=== PATIENT | female | born 1940 | race Caucasian/White ===

== ENCOUNTER 2018-06-04 09:49 | Emergency (ER) | payer MEDICARE ==
[~2018-06-04] VITALS: Ht 160 cm; Wt 75.0 kg
[~2018-06-04 09:49] MED LIST: ACYC-202 PO; ALEN40TA2 PO; AMLO5TAB16 PO; ASPI-1265 PO; ESCI10TA45 PO; HYDR-4353 PO; LACT1CAP65 PO; LEVO50TA67 PO; MECL12.584 PO; SENN-121 PO; TRAM50TA2 PO; VERA180T PO
[2018-06-04 10:52] LABS: BASOPHILS % (AUTO) 0.6 % (0-1); EOSINOPHILS # (AUTO) 0.1 X10'3 (0-0.9); EOSINOPHILS % (AUTO) 2.7 % (0-6); HEMATOCRIT 37.6 % (35.0-45.0); HEMOGLOBIN 12.2 g/dl (12.0-16.0); LYMPHOCYTES # (AUTO) 1.7 X10'3 (1.1-4.8); LYMPHOCYTES % (AUTO) 39.4 % (21-51); MEAN CORPUSCULAR HEMOGLOBIN 29.3 PG (27.0-31.0); MEAN CORPUSCULAR HGB CONC 32.5 % (33.0-36.5); MEAN CORPUSCULAR VOLUME 90.4 FL (78-98); MEAN PLATELET VOLUME 8.6 FL (7.4-10.4); MONOCYTES # (AUTO) 0.5 X10'3 (0-0.9); NEUTROPHILS % (AUTO) 46.3 % (42-75); PLATELET COUNT 240 X10'3 (140-440); RED BLOOD COUNT 4.16 X10'6 (4.20-5.60); RED CELL DISTRIBUTION WIDTH 14.8 % (11.5-14.5); WHITE BLOOD COUNT 4.4 X10'3 (4.5-11.0)
[2018-06-04 10:59] LABS: PARTIAL THROMBOPLASTIN TIME 26 SECONDS (22-32); PROTHROMBIN TIME 10.1 SECONDS (9.0-12.0)
[2018-06-04 11:01] LABS: ALANINE AMINOTRANSFERASE 26 U/L (12-78); ALBUMIN 3.4 G/DL (3.4-5.0); ALKALINE PHOSPHATASE 63 IU/L (46-116); ANION GAP 6 (8-16); ASPARTATE AMINO TRANSFERASE 20 U/L (10-37); BILIRUBIN,TOTAL 0.3 MG/DL (0.1-1.0); BLOOD UREA NITROGEN 14 MG/DL (7-18); BUN/CREATININE RATIO 15.7 (6.6-38.0); CALCIUM 9.3 MG/DL (8.5-10.1); CHLORIDE 106 MMOL/L (99-107); CREATININE 0.89 MG/DL (0.40-0.90); GLUCOSE 94 MG/DL (70-104); POTASSIUM 4.3 MMOL/L (3.5-5.1); SODIUM 144 MMOL/L (135-145); TOTAL CARBON DIOXIDE 32.4 MMOL/L (24-32); TOTAL PROTEIN 6.7 G/DL (6.4-8.2); eGFR 61 ML/MIN
[2018-06-04 12:56] LABS: CLARITY,URINE CLEAR (Clear); COLOR,URINE YELLOW (Yellow); GLUCOSE, URINE NEGATIVE (Neg); KETONES,URINE NEGATIVE (Neg); LEUKOCYTE ESTERASE ,URINE NEGATIVE (Neg); NITRITES, URINE NEGATIVE (Neg); OCCULT BLOOD,URINE NEGATIVE (Neg); PROTEIN,URINE NEGATIVE (Neg); UROBILINOGEN,URINE 0.2 E.U/dL (0.2-1.0)
[2018-06-04 13:01] LABS: UA COLLECTION TYPE CLN CATCH MIDSTREAM
[2018-06-04 13:06] VITALS: BP 157/68
== END 2018-06-04 13:08 | disposition home or self-care (01) ==
LOC: ER 09:50
DX: T82.120A Displacement of cardiac electrode, initial encounter (principal); Z95.0 Presence of cardiac pacemaker; Z88.0 Allergy status to penicillin; Z88.5 Allergy status to narcotic agent; Z79.82 Long term (current) use of aspirin; Z79.899 Other long term (current) drug therapy; Y92.89 Other specified places as the place of occurrence of the external cause
CPT/HCPCS: 36415; 71045; 80053; 81003; 84484; 85025; 85610; 85730; 93005; 99284

== ENCOUNTER 2018-10-30 10:09 | Observation (INO) | payer MEDICARE ==
[~2018-10-30] VITALS: Ht 162.6 cm; Wt 81.0 kg
[2018-10-30 10:54] LABS: BASOPHILS % (AUTO) 0.6 % (0-1); EOSINOPHILS # (AUTO) 0.2 X10'3 (0-0.9); EOSINOPHILS % (AUTO) 3.5 % (0-6); HEMATOCRIT 36.7 % (35.0-45.0); HEMOGLOBIN 11.9 g/dl (12.0-16.0); LYMPHOCYTES # (AUTO) 2.1 X10'3 (1.1-4.8); LYMPHOCYTES % (AUTO) 33.6 % (21-51); MEAN CORPUSCULAR HEMOGLOBIN 28.8 PG (27.0-31.0); MEAN CORPUSCULAR HGB CONC 32.6 g/dL (33.0-36.5); MEAN CORPUSCULAR VOLUME 88.6 FL (78-98); MEAN PLATELET VOLUME 9.5 FL (7.4-10.4); MONOCYTES # (AUTO) 0.6 X10'3 (0-0.9); MONOCYTES % (AUTO) 10.1 % (2-12); NEUTROPHILS # (AUTO) 3.3 X10'3 (1.8-7.7); NEUTROPHILS % (AUTO) 52.2 % (42-75); PLATELET COUNT 251 X10'3 (140-440); RED BLOOD COUNT 4.14 X10'6 (4.20-5.60); RED CELL DISTRIBUTION WIDTH 14.6 % (11.5-14.5); WHITE BLOOD COUNT 6.3 X10'3 (4.5-11.0)
[2018-10-30 11:06] LABS: ALANINE AMINOTRANSFERASE 23 U/L (12-78); ALBUMIN 3.3 G/DL (3.4-5.0); ALKALINE PHOSPHATASE 65 IU/L (46-116); ANION GAP 6 (8-16); ASPARTATE AMINO TRANSFERASE 16 U/L (10-37); BILIRUBIN,TOTAL 0.4 MG/DL (0.1-1.0); BLOOD UREA NITROGEN 18 MG/DL (7-18); BUN/CREATININE RATIO 21.2 (6.6-38.0); CALCIUM 9.4 MG/DL (8.5-10.1); CHLORIDE 107 MMOL/L (99-107); CREATININE 0.85 MG/DL (0.40-0.90); GLUCOSE 100 MG/DL (70-104); POTASSIUM 4.6 MMOL/L (3.5-5.1); SODIUM 140 MMOL/L (135-145); TOTAL CARBON DIOXIDE 27.5 MMOL/L (24-32); TOTAL PROTEIN 6.6 G/DL (6.4-8.2); eGFR 64 ML/MIN
[2018-10-30 11:09] LABS: PARTIAL THROMBOPLASTIN TIME 25 SECONDS (22-32)
[2018-10-30] MEDS ORDERED: nitroGLYCERIN 0.4mg/hour patch TD ONE (11:30)
[2018-10-30] MEDS ORDERED: aspirin 81mg tab.chew PO ONE (11:30)
[2018-10-30] MEDS ORDERED: potassium Cl 20 mEq SR tablet PO PRN ×2 (12:35)
[2018-10-30] MEDS ORDERED: magnesium hydroxide 30ml (MOM) UD suspension PO PRN (12:35)
[2018-10-30] MEDS ORDERED: potassium Cl 40MEQ/NS 500ml 500 ML IV PRN ×2 (12:35)
[2018-10-30] MEDS ORDERED: magnesium Cl slow-release 64mg tablet PO PRN (12:35)
[2018-10-30] MEDS ORDERED: acetaminophen 325mg tablet PO PRN (12:35)
[2018-10-30] MEDS ORDERED: bisacodyl 10mg suppository rectal RC PRN (12:35)
[2018-10-30] MEDS ORDERED: morphine 2 MG/ML inj. syringe IV PRN ×2 (12:35)
[2018-10-30] MEDS ORDERED: magnesium 4gm in 100ml NS 100 ML IV PRN (12:35)
[2018-10-30] MEDS ORDERED: mag hydrox/Alum hydrox/simeth 30ml oral suspension PO PRN (12:35)
[2018-10-30] MEDS ORDERED: magnesium 2GM in 50ml NS 50 ML IV PRN (12:35)
[2018-10-30] MEDS ORDERED: ondansetron/PF 4mg/2ml inj IV PRN (12:35)
[2018-10-30] MEDS ORDERED: nitroGLYCERIN 0.4mg SUBLingual tab SL PRN ×2 (12:45→12:50)
[2018-10-30] MEDS ORDERED: metoprolol tartrate 1mg/ml inj IV PRN (12:50)
[2018-10-30] MEDS ORDERED: aminophylline 250mg/10ml inj. IV PRN (12:50)
[2018-10-30] MEDS ORDERED: regadenoson 0.4mg/5ml syringe IV PRN (12:50)
[2018-10-30] MEDS: pantoprazole 40 MG vial IV SCH (12:54)
[2018-10-30] MEDS: sodium chloride 0.45% 1,000 ML IV SCH (12:54)
[2018-10-30] MEDS ORDERED: IRBE150T27 PO (13:40)
[2018-10-30] MEDS ORDERED: OMEP20CA10 PO (13:40)
[2018-10-30] MEDS ORDERED: ESTR10TA VG (13:40)
[2018-10-30] MEDS ORDERED: TRIA1TAB5 PO (13:40)
[2018-10-30] MEDS ORDERED: HYDR-4383 PO (13:40)
[2018-10-30] MEDS ORDERED: DULO20CA17 PO (13:45)
[2018-10-30] MEDS ORDERED: DONE10TA7 PO (13:46)
[2018-10-30] MEDS ORDERED: ASCO500C15 PO (13:48)
[2018-10-30] MEDS ORDERED: VITA-268 PO (13:48)
[2018-10-30] MEDS ORDERED: MULT-933 PO (13:48)
[2018-10-30] MEDS ORDERED: CALC1TAB PO (13:48)
[2018-10-30] MEDS ORDERED: NAPR220T67 PO (13:50)
[2018-10-30] MEDS ORDERED: CHOL100046 PO (13:50)
[2018-10-30 15:34] LABS: CLARITY,URINE CLEAR (Clear); COLOR,URINE YELLOW (Yellow); GLUCOSE, URINE NEGATIVE (Neg); KETONES,URINE TRACE mg/dl (Neg); LEUKOCYTE ESTERASE ,URINE NEGATIVE (Neg); NITRITES, URINE NEGATIVE (Neg); OCCULT BLOOD,URINE TRACE-LYSED (Neg); PROTEIN,URINE NEGATIVE (Neg); UROBILINOGEN,URINE 0.2 E.U/dL (0.2-1.0)
[2018-10-30 15:35] LABS: UA COLLECTION TYPE STRAIGHT CATH
[2018-10-30 15:42] LABS: SQUAMOUS EPITHELIAL CELL,UR NONE SEEN /LPF (FEW)
[2018-10-30 16:01] LABS: RBC,URINE 0-2 /HPF (0-2)
[2018-10-30 16:02] LABS: RENAL CELLS, URINE FEW /HPF; TRANSITIONAL EPI CELLS,URINE FEW /HPF
[2018-10-30 16:03] LABS: BACTERIA,URINE NONE SEEN /HPF (Neg); WBC,URINE 0-4 /HPF (0-4)
--- NOTE | 2018-10-30 17:32 | NUR ---
PATIENT ARRIVED TO ACCE UNIT ALERT/ORIENTEDX4, CALM AND COOPERATIVE WITH AT BEDSIDE. PATIENT SAYS SHE HOPES TO BE ABLE TO GO HOME TOMORROW, AND DENIES CHEST PAIN AT THIS TIME.
[2018-10-30 17:38] VITALS: BP 128/83
--- NOTE | 2018-10-30 17:43 | NUR ---
PATIENT REPORTS SHE CANNOT TAKE MORPHINE PAGED DR. MACHADO WITH INFO "Re: Hoa Powers in 313. FYI patient cannot take morphine, last hospitalization she became agitated and restrained and incontinent from morphine. do you want a different pain med ordered for her? and to dc morphine? thank you, Ermelinda BAILEY [phone]"
[2018-10-30 18:00] VITALS: BP 124/64
--- NOTE | 2018-10-30 18:00 | NUR ---
Patient in room MED 313. I have received report from Ermelinda ZAMUDIO and had the opportunity to ask questions and assume patient care.
[2018-10-30] MEDS: heparin, porcine 5000 units/ml vial SQ SCH (19:39)
[2018-10-30] MEDS: docusate sod 100mg capsule PO SCH (19:40)
[2018-10-30] MEDS: metoprolol tartrate 12.5mg (1/2 tablet) PO SCH (19:40)
[2018-10-30 22:00] VITALS: BP 137/90
[2018-10-31] VITALS (11 sets, daily range): BP systolic 104–143; BP diastolic 59–87
[2018-10-31] MEDS: sodium chloride 0.45% 1,000 ML IV SCH (03:43)
--- NOTE | 2018-10-31 04:30 | NUR ---
RECEIVED PATIENT FROM NAN ZAMUDIO AND ASSUMED CARE
--- NOTE | 2018-10-31 04:33 | NUR ---
Pt transferred in stable condition to room 4010. Portable tele box in place during transport. She was taken in her bed. O2 in place. Report was given to Cari ZAMUDIO in Neuro. Pt tolerated move well.
--- NOTE | 2018-10-31 06:05 | NUR ---
Patient in room ORTHO 4010. I have received report from ZUNILDA ZAMUDIO and had the opportunity to ask questions and assume patient care.
--- NOTE | 2018-10-31 06:14 | NUR ---
REPORT GIVEN TO FRANKLIN ZAMUDIO
[2018-10-31 06:27] LABS: BASOPHILS % (AUTO) 0.4 % (0-1); EOSINOPHILS # (AUTO) 0.1 X10'3 (0-0.9); EOSINOPHILS % (AUTO) 1.1 % (0-6); HEMATOCRIT 35.1 % (35.0-45.0); HEMOGLOBIN 11.8 g/dl (12.0-16.0); LYMPHOCYTES # (AUTO) 2.2 X10'3 (1.1-4.8); LYMPHOCYTES % (AUTO) 29.5 % (21-51); MEAN CORPUSCULAR HEMOGLOBIN 29.7 PG (27.0-31.0); MEAN CORPUSCULAR HGB CONC 33.7 g/dL (33.0-36.5); MEAN CORPUSCULAR VOLUME 88.2 FL (78-98); MEAN PLATELET VOLUME 10.1 FL (7.4-10.4); MONOCYTES # (AUTO) 0.6 X10'3 (0-0.9); MONOCYTES % (AUTO) 8.8 % (2-12); NEUTROPHILS # (AUTO) 4.4 X10'3 (1.8-7.7); NEUTROPHILS % (AUTO) 60.2 % (42-75); PLATELET COUNT 266 X10'3 (140-440); RED BLOOD COUNT 3.98 X10'6 (4.20-5.60); RED CELL DISTRIBUTION WIDTH 14.7 % (11.5-14.5); WHITE BLOOD COUNT 7.3 X10'3 (4.5-11.0)
[2018-10-31 06:48] LABS: ALANINE AMINOTRANSFERASE 21 U/L (12-78); ALBUMIN 3.2 G/DL (3.4-5.0); ALKALINE PHOSPHATASE 65 IU/L (46-116); ANION GAP 10 (8-16); ASPARTATE AMINO TRANSFERASE 13 U/L (10-37); BILIRUBIN,TOTAL 0.4 MG/DL (0.1-1.0); BLOOD UREA NITROGEN 15 MG/DL (7-18); BUN/CREATININE RATIO 18.8 (6.6-38.0); CALCIUM 9.1 MG/DL (8.5-10.1); CHLORIDE 106 MMOL/L (99-107); CHOLESTEROL 144 MG/DL (0-200); GLUCOSE 114 MG/DL (70-104); HDL CHOLESTEROL 36 MG/DL (35-60); LDL CHOLESTEROL 94 MG/DL (50-100); MAGNESIUM 1.5 MG/DL (1.5-2.4); POTASSIUM 3.7 MMOL/L (3.5-5.1); SODIUM 139 MMOL/L (135-145); TOTAL CARBON DIOXIDE 23.5 MMOL/L (24-32); TOTAL PROTEIN 6.4 G/DL (6.4-8.2); TRIGLYCERIDES 91 MG/DL (20-135); eGFR 69 ML/MIN
--- NOTE | 2018-10-31 07:11 | NUR ---
PAGER ID: [phone] MESSAGE: FRANKLIN [phone] RE: MICHAEL [id number] PT SOB, WHEEZES, NO CP, GHASSAN TODAY, DO YOU WANT ANYTHING ELSE?
[2018-10-31] MEDS ORDERED: albuterol 2.5 MG/3 ML nebule NEB PRN (07:15)
[2018-10-31] MEDS ORDERED: aspirin 81mg tablet.DR PO SCH (08:00)
[2018-10-31] MEDS ORDERED: K and/or MAG REPLACEMENT MC SCH (08:00)
[2018-10-31] MEDS: docusate sod 100mg capsule PO SCH (08:36)
[2018-10-31] MEDS: metoprolol tartrate 12.5mg (1/2 tablet) PO SCH (08:36)
[2018-10-31] MEDS: heparin, porcine 5000 units/ml vial SQ SCH (08:37)
[2018-10-31] MEDS: pantoprazole 40 MG vial IV SCH (08:48)
[2018-10-31] MEDS ORDERED: aminophylline inj. 10 ML IV ONE (10:20)
[2018-10-31] MEDS ORDERED: regadenoson 0.4mg/5ml syringe IV ONE (10:20)
[2018-10-31] MEDS ORDERED: ondansetron/PF 4mg/2ml inj ONE (10:51)
--- NOTE | 2018-10-31 11:48 | NUR ---
Student documentation: I have reviewed all interventions, assessments performed and documented by Cari Bermudez. Student Medication Administration: For this medication-pass time frame, all medication were reviewed, dispensed, administered and documented per hospital policy [facility].
--- NOTE | 2018-10-31 11:52 | NUR ---
PAGER ID: [phone] MESSAGE: FRANKLIN [phone] RE: MICHAEL [id number] BACK FROM [facility].
[2018-10-31] MEDS ORDERED: METO25TA6 PO (13:18)
== END 2018-10-31 15:45 | disposition home or self-care (01) ==
LOC: ER 10:09 → MED 3N 11:40 → CMPBEDREQ 19:31 → ORTHO 4S 10-31 04:18
PROVIDERS: ADMIT Internal Medicine; ATTEND Internal Medicine
DX: R07.89 Other chest pain (principal); J96.10 Chronic respiratory failure, unspecified whether with hypoxia or hypercapnia; M79.7 Fibromyalgia; I10 Essential (primary) hypertension; E03.9 Hypothyroidism, unspecified; F03.90 Unspecified dementia, unspecified severity, without behavioral disturbance, psychotic disturbance, mood disturbance, and anxiety; R53.83 Other fatigue; E78.00 Pure hypercholesterolemia, unspecified; I49.9 Cardiac arrhythmia, unspecified; Z95.0 Presence of cardiac pacemaker; K21.9 Gastro-esophageal reflux disease without esophagitis; R29.6 Repeated falls
CPT/HCPCS: 36415; 71045; 78452; 80053; 80061; 81001; 83735; 84443; 84484; 85025; 85610; 85730; 87070; 93005; 93017; 93306; 94760; 96372; 96374; 96375; 96376; 99284; A9500; C9113; G0378; J0280; J1644; J2405

== ENCOUNTER 2018-11-08 09:33 | Emergency (ER) | payer MEDICARE ==
[~2018-11-08] VITALS: Ht 167.6 cm; Wt 81.8 kg
[~2018-11-08 09:33] MED LIST changes: -ACYC-202 PO; -ALEN40TA2 PO; -AMLO5TAB16 PO; +ASCO500C15 PO; +CALC1TAB PO; +CHOL100046 PO; +DONE10TA7 PO; +DULO20CA17 PO; -ESCI10TA45 PO; +ESTR10TA VG; -HYDR-4353 PO; +HYDR-4383 PO; +IRBE150T27 PO; -LACT1CAP65 PO; -MECL12.584 PO; +METO25TA6 PO; +MULT-933 PO; +NAPR220T67 PO; +OMEP20CA10 PO; -SENN-121 PO; -TRAM50TA2 PO; -VERA180T PO; +VITA-268 PO
--- NOTE | 2018-11-08 10:08 | NUR ---
label press operator at bedside.
[2018-11-08 10:55] LABS: CLARITY,URINE CLOUDY (Clear); COLOR,URINE YELLOW (Yellow); GLUCOSE, URINE NEGATIVE (Neg); KETONES,URINE NEGATIVE (Neg); LEUKOCYTE ESTERASE ,URINE TRACE (Neg); NITRITES, URINE NEGATIVE (Neg); OCCULT BLOOD,URINE NEGATIVE (Neg); PROTEIN,URINE NEGATIVE (Neg); UA COLLECTION TYPE CLN CATCH MIDSTREAM; UROBILINOGEN,URINE 0.2 E.U/dL (0.2-1.0)
[2018-11-08 11:05] LABS: SQUAMOUS EPITHELIAL CELL,UR MANY /LPF (FEW)
[2018-11-08 11:07] LABS: BACTERIA,URINE 1+ /HPF (Neg)
[2018-11-08 11:22] VITALS: BP 142/71
[2018-11-08 11:30] LABS: BASOPHILS # (AUTO) 0.1 X10'3 (0-0.2); BASOPHILS % (AUTO) 0.7 % (0-1); EOSINOPHILS # (AUTO) 0.3 X10'3 (0-0.9); EOSINOPHILS % (AUTO) 3.8 % (0-6); HEMATOCRIT 38.6 % (35.0-45.0); HEMOGLOBIN 12.6 g/dl (12.0-16.0); LYMPHOCYTES # (AUTO) 2.2 X10'3 (1.1-4.8); LYMPHOCYTES % (AUTO) 30.8 % (21-51); MEAN CORPUSCULAR HEMOGLOBIN 29.3 PG (27.0-31.0); MEAN CORPUSCULAR HGB CONC 32.8 g/dL (33.0-36.5); MEAN CORPUSCULAR VOLUME 89.4 FL (78-98); MEAN PLATELET VOLUME 9.2 FL (7.4-10.4); MONOCYTES # (AUTO) 0.6 X10'3 (0-0.9); MONOCYTES % (AUTO) 8.8 % (2-12); NEUTROPHILS # (AUTO) 4.1 X10'3 (1.8-7.7); NEUTROPHILS % (AUTO) 55.9 % (42-75); PLATELET COUNT 275 X10'3 (140-440); RED BLOOD COUNT 4.32 X10'6 (4.20-5.60); RED CELL DISTRIBUTION WIDTH 15.5 % (11.5-14.5); WHITE BLOOD COUNT 7.3 X10'3 (4.5-11.0)
[2018-11-08 11:45] LABS: PARTIAL THROMBOPLASTIN TIME 22 SECONDS (22-32)
[2018-11-08 11:55] LABS: ALANINE AMINOTRANSFERASE 39 U/L (12-78); ALBUMIN 3.5 G/DL (3.4-5.0); ALKALINE PHOSPHATASE 71 IU/L (46-116); ANION GAP 11 (8-16); ASPARTATE AMINO TRANSFERASE 24 U/L (10-37); BILIRUBIN,TOTAL 0.7 MG/DL (0.1-1.0); BLOOD UREA NITROGEN 19 MG/DL (7-18); BUN/CREATININE RATIO 23.8 (6.6-38.0); CHLORIDE 106 MMOL/L (99-107); GLUCOSE 100 MG/DL (70-104); MAGNESIUM 1.7 MG/DL (1.5-2.4); SODIUM 142 MMOL/L (135-145); TOTAL CARBON DIOXIDE 25.3 MMOL/L (24-32); TOTAL PROTEIN 6.9 G/DL (6.4-8.2); eGFR 69 ML/MIN
[2018-11-08 11:57] LABS: POTASSIUM 4.5 MMOL/L (3.5-5.1)
== END 2018-11-08 12:58 | disposition home or self-care (01) ==
LOC: ER 09:33
DX: R06.02 Shortness of breath (principal); R05 Cough; I49.9 Cardiac arrhythmia, unspecified; E78.00 Pure hypercholesterolemia, unspecified; I10 Essential (primary) hypertension; E03.9 Hypothyroidism, unspecified; Z95.0 Presence of cardiac pacemaker; Z88.0 Allergy status to penicillin; Z88.5 Allergy status to narcotic agent; Z79.82 Long term (current) use of aspirin; Z79.899 Other long term (current) drug therapy
CPT/HCPCS: 36415; 71046; 80053; 81001; 83605; 83735; 83880; 84145; 84484; 85025; 85610; 85730; 87040; 93005; 99284

== ENCOUNTER 2018-11-15 08:23 | Inpatient (IN) | payer MEDICARE | END 2018-11-17 14:05 | disposition home or self-care (01) | LOC: ER 08:23 → PCU 3S 13:28 | DX: I21.A1 Myocardial infarction type 2 (principal); I50.23 Acute on chronic systolic (congestive) heart failure; N39.0 Urinary tract infection, site not specified ==

== ENCOUNTER 2018-12-11 11:07 | Emergency (ER) | payer MEDICARE ==
[~2018-12-11] VITALS: Ht 157.5 cm; Wt 78.7 kg
[~2018-12-11 11:07] MED LIST changes: +ALEN70TA60 PO; -DONE10TA7 PO; -DULO20CA17 PO; +ESCI10TA PO; -IRBE150T27 PO; -LEVO50TA67 PO; +LEVO75TA7 PO; +METO-395 PO; -METO25TA6 PO; -NAPR220T67 PO; -OMEP20CA10 PO; +OMEP20CA11 PO; +SACU1TAB7 PO; +SPIR25TA PO; +TRAZ-251 PO; +TRIA1TAB5 PO; +VERA180T PO
[2018-12-11 12:31] LABS: BASOPHILS % (AUTO) 0.7 % (0-1); EOSINOPHILS # (AUTO) 0.2 X10'3 (0-0.9); EOSINOPHILS % (AUTO) 3.9 % (0-6); HEMATOCRIT 36.1 % (35.0-45.0); HEMOGLOBIN 11.6 g/dl (12.0-16.0); LYMPHOCYTES # (AUTO) 2.1 X10'3 (1.1-4.8); LYMPHOCYTES % (AUTO) 41.9 % (21-51); MEAN CORPUSCULAR HEMOGLOBIN 28.6 PG (27.0-31.0); MEAN CORPUSCULAR HGB CONC 32.2 g/dL (33.0-36.5); MEAN CORPUSCULAR VOLUME 88.7 FL (78-98); MEAN PLATELET VOLUME 9.3 FL (7.4-10.4); MONOCYTES # (AUTO) 0.7 X10'3 (0-0.9); MONOCYTES % (AUTO) 13.4 % (2-12); NEUTROPHILS % (AUTO) 40.1 % (42-75); PLATELET COUNT 196 X10'3 (140-440); RED BLOOD COUNT 4.07 X10'6 (4.20-5.60); RED CELL DISTRIBUTION WIDTH 16.3 % (11.5-14.5); WHITE BLOOD COUNT 4.9 X10'3 (4.5-11.0)
[2018-12-11 12:47] LABS: CLARITY,URINE CLEAR (Clear); COLOR,URINE YELLOW (Yellow); GLUCOSE, URINE NEGATIVE (Neg); KETONES,URINE NEGATIVE (Neg); LEUKOCYTE ESTERASE ,URINE NEGATIVE (Neg); NITRITES, URINE NEGATIVE (Neg); OCCULT BLOOD,URINE NEGATIVE (Neg); PROTEIN,URINE NEGATIVE (Neg); UROBILINOGEN,URINE 0.2 E.U/dL (0.2-1.0)
[2018-12-11 12:47] LABS: ALANINE AMINOTRANSFERASE 20 U/L (12-78); ALBUMIN/GLOBULIN RATIO 0.9 (1.1-1.5); ALKALINE PHOSPHATASE 54 IU/L (46-116); ANION GAP 10 (8-16); ASPARTATE AMINO TRANSFERASE 20 U/L (10-37); BILIRUBIN,TOTAL 0.4 MG/DL (0.1-1.0); BLOOD UREA NITROGEN 14 MG/DL (7-18); BUN/CREATININE RATIO 19.2 (6.6-38.0); CALCIUM 8.8 MG/DL (8.5-10.1); CHLORIDE 107 MMOL/L (99-107); CREATININE 0.73 MG/DL (0.40-0.90); GLUCOSE 97 MG/DL (70-104); POTASSIUM 3.9 MMOL/L (3.5-5.1); SODIUM 139 MMOL/L (135-145); TOTAL CARBON DIOXIDE 21.7 MMOL/L (24-32); TOTAL PROTEIN 6.2 G/DL (6.4-8.2); eGFR 77 ML/MIN
[2018-12-11 12:55] LABS: UA COLLECTION TYPE STRAIGHT CATH
[2018-12-11 13:26] LABS: PARTIAL THROMBOPLASTIN TIME 27 SECONDS (22-32)
[2018-12-11 14:08] VITALS: BP 121/66
== END 2018-12-11 14:11 | disposition home or self-care (01) ==
LOC: ER 11:09
DX: R44.3 Hallucinations, unspecified (principal); N39.0 Urinary tract infection, site not specified; I11.0 Hypertensive heart disease with heart failure; I50.9 Heart failure, unspecified; E78.00 Pure hypercholesterolemia, unspecified; E05.90 Thyrotoxicosis, unspecified without thyrotoxic crisis or storm; Z95.0 Presence of cardiac pacemaker; Z88.0 Allergy status to penicillin; Z88.5 Allergy status to narcotic agent; Z79.82 Long term (current) use of aspirin; Z79.899 Other long term (current) drug therapy
CPT/HCPCS: 36415; 71045; 80053; 81003; 83605; 84145; 85025; 85610; 85730; 87040; 99284; P9612